=== PATIENT | male | born 2000 | race Native Hawaiian/Other Pacific Islander ===

== ENCOUNTER → 2020-07-26 14:05 | Outpatient (CLI) | payer OTHER, SELFPAY ==
[2020-07-26] MEDS: COVID-19 VACC #1, MRNA(MOD) 100 MCG/0.5 ML VIAL IM (14:09)
== END ==
PROVIDERS: Visit Provider Internal Medicine
DX: Z23 Encounter for immunization (principal)
CPT/HCPCS: 0011A; 91301

== ENCOUNTER → 2020-08-24 14:38 | Outpatient (CLI) | payer BC, SELFPAY ==
[2020-08-24] MEDS: COVID-19 VACC #2, MRNA(MOD) 100 MCG/0.5 ML VIAL IM (14:46)
== END ==
PROVIDERS: Visit Provider Internal Medicine
DX: Z23 Encounter for immunization (principal)
CPT/HCPCS: 0012A; 91301

== ENCOUNTER 2020-10-08 19:08 | Emergency (ER) | payer OTHER, SELFPAY ==
[2020-10-08 19:27] VITALS: BP 138/85; PULSE 104; RESP 18; TEMP 36.9; O2SAT 98; BMI 21.9
--- NOTE | 2020-10-08 19:53 | ED.WOUNDLAC ---
HPI - Wound/Laceration General Chief Complaint: Wound/Laceration Stated Complaint: cut left index finger at work Time Seen by Provider: 10/08/20 19:32 Source: patient Mode of arrival: Ambulatory Limitations: no limitations History of Present Illness HPI narrative: 20-year-old gentleman with no significant medical history was at work today in caught his left index finger between a support beam and the table top with a crush injury and laceration to the ventral surface of the finger. He is neurovascularly intact and has no other injuries. Related Data Previous Rx's Medication Instructions Recorded erythromycin 5 mg/gram (0.5 %) eye 1 applic OPHTHALMIC (EYE) BID #3.5 12/17/18 ointment gram cephalexin 500 mg PO TID 5 Days #15 cap 10/08/20 Allergies Allergy/AdvReac Type Severity Reaction Status Date / Time ibuprofen Allergy Severe lip Verified 10/08/20 19:27 swelling amoxicillin Allergy Mild rash Verified 10/08/20 19:27 Review of Systems Review of Systems Narrative: Remainder of complete review of systems is otherwise unremarkable except for that included in the HPI. Patient History Social History Smoking Status: Never smoker Smoking Status: Never smoker Substance Use Type: does not use Exam Narrative Exam Narrative: General: Alert appropriate in no acute distress Respiratory: Able to speak in full sentences, no obvious respiratory distress Skin: No obvious rashes, warm and dry Neurologic: Grossly intact no obvious asymmetries or abnormalities Psych: appropriate insight and affect, cooperative Extremity: Left index finger with 4 cm laceration to the ventral surface of the proximal finger. There is no tendon involvement. There is a moderate amount of crush injury involved with bruising already. Moderate amount of edema. He can fully flex and extend the finger and has full sensation to the finger tip prior to anesthetic Initial Vital Signs Initial Vital Signs: Vital Signs Temperature 98.4 F 10/08/20 19:27 Pulse Rate 104 H 10/08/20 19:27 Respiratory Rate 18 10/08/20 19:27 Blood Pressure 138/85 10/08/20 19:27 Pulse Oximetry 98 10/08/20 19:27 Procedures Laceration Repair Finger laceration: Site: hand (Left index finger) Side (If applicable): left Size (cm): 4 Description: linear Depth: simple, single layer Local Anesthetic: other anesthetic (Digital block) Pre-repair: wound explored and deep structures intact Skin layer closed with: nylon Size (cm): 4-0 Number of sutures: 6 Technique: simple, interrupted Nerve Block Nerve Block 1: Time out performed: Yes Local Anesthetic: lidocaine 1% and with bicarb Amount of anesthesia used (mL): 6 Side: left Nerve Blocks: digital Procedure Successful: Yes Patient Tolerated Procedure: Well Complications: none Course Orders Ordered: ED Orders 10/08/20 19:54 XR finger LT min 2V Stat Discontinued Medications Bacitracin (Bacitracin Oint 0.9 Gm Pckt) 1 applic TOP NOW ONE Stop: 10/08/20 19:53 Last Admin: 10/08/20 20:11 Dose: 1 applic Documented by: AMADO Diphtheria/Tetanus/Acell Pertussis (Tet,Diph,Pertuss(Acell),Vac/Pf 0.5 Ml Syringe) 0.5 ml IM .ONCE ONE Stop: 10/08/20 19:55 Last Admin: 10/08/20 20:08 Dose: 0.5 ml Documented by: AMADO Lidocaine/Sodium Bicarbonate (Lido 1%/Sod Bicarb 8.4% (10ml) 10 Ml Syringe) 10 ml INJ NOW ONE Stop: 10/08/20 19:53 Last Admin: 10/08/20 20:11 Dose: 10 ml Documented by: AMADO Vital Signs Vital signs: Vital Signs - 8 hr 10/08/20 19:27 10/08/20 22:51 Temperature 98.4 F Pulse Rate 104 H 81 Respiratory Rate 18 18 Blood Pressure 138/85 126/73 Pulse Oximetry 98 98 MDM - Wound/Laceration Medical Records Attestation: I reviewed the patient's medical records. Imaging Data Finger x-ray: Radiologist's Impression: FINDINGS: Bones: No fractures or dislocations. No suspicious bony lesions. Soft tissues: No suspicious soft tissue calcifications. IMPRESSION: No evidence acute bony abnormality of the left 2nd finger. Dictated by: Cristino Pedraza M.D. on 10/08/2020 at 20:48 MDM Narrative Medical decision making narrative: 20-year-old gentleman with a crush type injury and 4 cm laceration to the ventral surface of the left index finger. No bony involvement no tendon involvement. Neurovascularly intact at time of initial wound. Interrupted sutures used with good aesthetic and hemostatic closure. Because of the crush component in size of the laceration he is placed on Keflex and tetanus status is updated. He is safe for home discharge Discharge Plan Departure Patient Disposition: Home Clinical Impression: Laceration Crush injury to finger Qualifiers: Encounter type: initial encounter Qualified Code(s): S67.10XA - Crushing injury of unspecified finger(s), initial encounter Instructions: How to Care for a Laceration After Repair, DI for Laceration Repair Activity Restrictions/Additional Instructions: Thank you for coming in today You will need the sutures removed on or about October 15. Using go to your primary care doctor, urgent care or return to the ER to have this done. With the size of the wound the risk of infection is high enough that I would suggest that you complete 5 days of cephalexin. 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 I hope you heal quickly Prescriptions: New cephalexin 500 mg capsule 500 mg PO TID 5 Days Qty: 15 RF: 0 No Action erythromycin 5 mg/gram (0.5 %) ointment 1 applic ophthalmic (eye) BID Qty: 3.5 RF: 2
--- NOTE | 2020-10-08 19:54 | DI.RAD.S_ITS ---
PROCEDURE: XR FINGER LT MIN 2V INDICATIONS: trauma TECHNIQUE: AP hand, 2 views of the 2nd finger(s) acquired. COMPARISON: None. FINDINGS: Bones: No fractures or dislocations. No suspicious bony lesions. Soft tissues: No suspicious soft tissue calcifications. IMPRESSION: No evidence acute bony abnormality of the left 2nd finger. Dictated by: Cristino Pedraza M.D. on 10/08/2020 at 20:48 Approved by: Cristino Pedraza M.D. on 10/08/2020 at 20:49
[2020-10-08] MEDS: TET,DIPH,PERTUSS(ACELL),VAC/PF 0.5 ML SYRINGE IM (20:08)
[2020-10-08] MEDS: LIDO 1%/SOD BICARB 8.4% (10ML) 10 ML SYRINGE INJ (20:11)
[2020-10-08] MEDS: BACITRACIN OINT 0.9 GM PCKT 1 APPLIC TOP (20:11)
[2020-10-08 22:51] VITALS: BP 126/73; PULSE 81; RESP 18; O2SAT 98
== END 2020-10-08 22:52 | disposition home or self-care (01) ==
PROVIDERS: Emergency Provider Emergency Medicine
DX: S61.211A Laceration without foreign body of left index finger without damage to nail, initial encounter (principal); S67.10XA Crushing injury of unspecified finger(s), initial encounter; W23.0XXA Caught, crushed, jammed, or pinched between moving objects, initial encounter; Y99.0 Civilian activity done for income or pay; Z23 Encounter for immunization
CPT/HCPCS: 12002; 64450; 73140; 90471; 99284; 90715